=== PATIENT | female | born 1975 | race African-American/Black ===

== ENCOUNTER 2017-04-27 09:23 | Emergency (ER) | payer MEDICAID ==
[2017-04-27] VITALS (14 sets, daily range): BP systolic 101–140; BP diastolic 52–83
[~2017-04-27] VITALS: Ht 157.5 cm; Wt 60.9 kg
[2017-04-27] MEDS ORDERED: ONDANSETRON HCL 4 MG/2 ML VIAL IVP ONE ×2 (10:30→15:45)
[2017-04-27] MEDS ORDERED: KETOROLAC TROMETHAMINE 30 MG/ML VIAL IVP ONE (10:30)
[2017-04-27] MEDS ORDERED: SODIUM CHLORIDE 0.9% 1,000 ML IV ONE (10:30)
[2017-04-27 10:49] LABS: HEMATOCRIT 25.6 % (36-46); HEMOGLOBIN 7.4 g/dL (12.0-16.0); MEAN CORPUSCULAR HEMOGLOBIN 16.9 pg (26.0-34.0); MEAN CORPUSCULAR HGB CONC 28.7 G/dL (31.0-37.0); MEAN CORPUSCULAR VOLUME 59 fL (80-100); PLATELET COUNT (AUTO) 662 K/uL (150-450); RED BLOOD CELL COUNT(AUTO) 4.37 MIL/uL (4.00-5.20); RED CELL DISTRIBUTION WIDTH 21.7 % (11.5-14.5); WHITE BLOOD COUNT (AUTO) 6.6 K/uL (4.5-11.0)
[2017-04-27 10:50] LABS: APPEARANCE,URINE CLOUDY (CLEAR); GLUCOSE, URINE (UA) NEGATIVE (NEGATIVE); KETONES,URINE NEGATIVE (NEGATIVE); LEUKOCYTE ESTERASE ,URINE NEGATIVE (NEGATIVE); OCCULT BLOOD,URINE NEGATIVE (NEGATIVE); PROTEIN,URINE NEGATIVE (NEGATIVE)
[2017-04-27 10:54] LABS: ANION GAP 9 mmol/L (8-16); CALCIUM, TOTAL 8.6 mg/dL (8.8-10.5); CARBON DIOXIDE 28 mmol/L (22-29); CHLORIDE 103 mmol/L (98-107); CREATININE 0.85 mg/dL (0.60-1.30); GLOMERULAR FILTR. RATE CALC > 60 mL/min (>60); POTASSIUM 3.2 mmol/L (3.5-5.1); SODIUM SERUM 140 mmol/L (136-145); UREA NITROGEN, BLOOD 9 mg/dL (7-18)
[2017-04-27 10:57] LABS: ADD UA MICROSCOPIC NO
[2017-04-27 10:58] LABS: PROTHROMBIN TIME 10.2 SEC (9.4-11.6)
[2017-04-27 10:59] LABS: ALANINE AMINOTRANSFERASE 17 U/L (12-78); ALBUMIN 3.6 g/dL (3.4-5.0); ASPARTATE AMINOTRANSFERASE 12 U/L (15-37); BILIRUBIN,TOTAL 0.3 mg/dL (0.1-1.0); TOTAL PROTEIN, SERUM 7.7 g/dL (6.4-8.2)
[2017-04-27 11:18] LABS: BAND NEUTROPHILS % (MANUAL) 1 % (1-5); LYMPHOCYTES % (MANUAL) 35 % (22-44); TOTAL CELLS COUNTED 100
[2017-04-27 11:19] LABS: RBC MORPHOLOGY COMMENT ABNORMAL R
[2017-04-27] MEDS ORDERED: MedroxyPROGESTERone ACET 5 MG TABLET PO ONE (13:15)
== END 2017-04-27 21:25 | disposition home or self-care (01) ==
LOC: EMS 09:24
DX: N93.8 Other specified abnormal uterine and vaginal bleeding (principal); D64.9 Anemia, unspecified; F17.210 Nicotine dependence, cigarettes, uncomplicated
CPT/HCPCS: 36415; 36430; 76856; 80053; 81003; 83690; 84703; 85025; 85610; 85730; 86850; 86900; 86901; 86920; 93005; 96361; 96374; 96375; 96376; 99285; J1885; J2405; J7030; P9016